=== PATIENT | male | born 1955 | race Two or more races ===

== ENCOUNTER 2017-08-16 17:55 | Inpatient (IN) | payer MEDICARE, OTHER ==
[~2017-08-16] VITALS: Ht 165.1 cm; Wt 99.8 kg
[~2017-08-16 17:55] MED LIST: AMLODIPINE BESYL5 MG ORAL; ASPIRIN EC81 MG ORAL; ATORVASTATIN CA40 MG ORAL; CALCIUM ACETAT667 M1 PO; CARVEDILOL25 MG ORAL; CEFTRIAXON1 GM/50 ML IV; COLACE100 MG ORAL; DILANTIN100 MG ORAL; FERROUS SULFAT325 M2 ORAL; FOLIC ACID1 M1 PO; HYDRALAZINE HCL25 M1 ORAL; LEVEMIR FL100 UNIT/1 SUBQ; LIPITOR40 MG ORAL; LISINOPRIL40 MG ORAL; NORCO 10/3251 EA ORAL; NOVOLOG100 UNITS1 SUBQ; PHENYTOIN SODI100 MG ORAL; RENA-VITE RX T1 EAC1 PO; UNOBMED
[2017-08-16] MEDS ORDERED: UNOBMED (18:07)
[2017-08-16] MEDS ORDERED: Piperacillin/Tazobactam 3.375 GM in NS 110 ML IVPB ONE (18:15)
[2017-08-16 19:04] LABS: APPEARANCE,URINE CLEAR; BILIRUBIN, URINE NEGATIVE (NEGATIVE); COLOR,URINE PALE YELLOW; GLUCOSE, URINE (UA) NEGATIVE (NEGATIVE); KETONES,URINE NEGATIVE (NEGATIVE); LEUKOCYTE ESTERASE ,URINE NEGATIVE (NEGATIVE); NITRITE,URINE NEGATIVE (NEGATIVE); PH,URINE 5 (4.5-8.0); PROTEIN,URINE NEGATIVE (NEGATIVE); UROBILINOGEN,URINE NORMAL MG/DL (0.0-1.0)
[2017-08-16 19:09] LABS: HEMATOCRIT 38.3 % (42.0-52.0); HEMOGLOBIN 12.9 G/DL (14.2-18.0); MEAN CORPUSCULAR VOLUME 99 FL (80-99); PLATELET COUNT 148 K/UL (150-450); RED BLOOD COUNT 3.89 M/UL (4.70-6.10); RED CELL DISTRIBUTION WIDTH 11.8 % (11.6-14.8); WHITE BLOOD COUNT 8.1 K/UL (4.8-10.8)
[2017-08-16 19:18] LABS: INR 1.3 (0.9-1.1)
[2017-08-16 19:30] VITALS: BP 152/76
[2017-08-16 19:32] LABS: ANION GAP 9 mmol/L (5-15); BLOOD UREA NITROGEN 37 mg/dL (7-18); CALCIUM 9.9 MG/DL (8.5-10.1); CARBON DIOXIDE 25 MMOL/L (21-32); CHLORIDE 102 MMOL/L (98-107); CREATININE 2.3 MG/DL (0.55-1.30); POTASSIUM 4.3 MMOL/L (3.5-5.1); SODIUM 136 MMOL/L (136-145)
[2017-08-16 19:43] LABS: ALANINE AMINOTRANSFERASE 56 U/L (12-78); ALBUMIN 4.2 G/DL (3.4-5.0); ALBUMIN/GLOBULIN RATIO 1.2 (1.0-2.7); ALKALINE PHOSPHATASE 132 U/L (46-116); ASPARTATE AMINO TRANSFERASE 36 U/L (15-37); BILIRUBIN,TOTAL 0.5 MG/DL (0.2-1.0); CREATINE KINASE 285 U/L (26-308)
--- NOTE | 2017-08-16 20:10 | Emergency Room Report ---
History of Present Illness General Chief Complaint: Skin Rash/Abscess Source: Patient, Medical Record Present Illness HPI The patient presents with several days of worsening of a diabetic ulcer on his right foot. There is also some redness there. He's had a previous diabetic ulcer on that foot in a different area. He denies any fevers or chills. He has neuropathy and doesn't feel pain. He also has circulatory problems there. There is no drainage. The patient is one year post kidney transplant.. Before that he was on dialysis. He denies any dyspnea, cough, transplant pain, nausea, vomiting, diarrhea, dysuria. He does have swelling of his lower extremities and is on a water pill. He is on Prograf and prednisone. The patient states his last tetanus shot was one year ago. Allergies: Coded Allergies: No Known Allergies (Unverified , 03/14/14) Patient History Past Medical History: see triage record Social History: Denies: smoking, alcohol use, drug use Social History Narrative born in [facility] Reviewed Nursing Documentation: PMH: Agreed; PSxH: Agreed Nursing Documentation-PMH Past Medical History: No History, Except For Hx Cardiac Problems: No Hx Hypertension: Yes Hx Pacemaker: No Hx Asthma: No Hx COPD: No Hx Diabetes: Yes Hx Cancer: No Hx Gastrointestinal Problems: No Hx Dialysis: Yes - last dialysis- 05/05/2013. right kidney transplant on 2016 Hx Neurological Problems: Yes Hx Cerebrovascular Accident: No Hx Seizures: Yes Review of Systems All Other Systems: negative except mentioned in HPI Physical Exam Vital Signs Date Time Temp Pulse Resp B/P (MAP) Pulse Ox O2 Delivery O2 Flow Rate FiO2 08/16/17 18:00 97.6 91 18 151/78 95 Room Air 97.5 Sp02 EP Interpretation: reviewed, normal General Appearance: well appearing, no apparent distress, GCS 15, non-toxic, other - [place] face Head: normocephalic, atraumatic Eyes: bilateral eye normal inspection, bilateral eye PERRL, bilateral eye EOMI ENT: moist mucus membranes Neck: full range of motion, supple Respiratory: chest non-tender, lungs clear, normal breath sounds Cardiovascular #1: edema - 2+ pitting edema bilateral somewhat worse on R Cardiovascular #2: 2+ radial (R), 2+ radial (L) Gastrointestinal: normal bowel sounds, non tender, soft, other - no tenderness , overweight Genitourinary: no CVA tenderness Musculoskeletal: back normal, swelling - and erythema R 2nd toe Neurologic: oriented x3, responsive, motor strength/tone normal, sensory intact Psychiatric: mood/affect normal Skin: other - erythema dorsum of R foot - tissue of 2nd toe almost devitalized. Plethoric Medical Decision Making Diagnostic Impression: Primary Impression: Diabetic foot infection Additional Impressions: S/P kidney transplant Diabetes Qualified Codes: E10.69 - Type 1 diabetes mellitus with other specified complication Renal insufficiency ER Course Patient presents with skin changes of his right foot with a history of prior diabetic ulcer in that area. Differential includes osteomyelitis, cellulitis, multi-organism infection amongst others. His exam is against this being a DVT. The skin is warm there and there appears to be good circulation. Vascular blockage is doubted at this time the patient is at increased risk because is on immunosuppressants for his recent renal transplant. His tetanus is up-to-date. The patient will be evaluated with EKG, chest x-ray for x-ray and labs including blood cultures. We'll be starting him on antibiotics as suspicion for cellulitis is high. EKG without injury. Chest x-ray with cardiomegaly and some reversible flow no infiltrates or effusion apparent. Foot x-ray shows DJD, vascular calcifications and possible bony changes consistent with osteomyelitis. Labs with normal white count. BUN and creatinine are elevated (though much less than when on dialysis). ESR is elevated (this on prednisone). NS stopped due to edema. Patient admitted medical floor Dr. Castillo. Laboratory Tests Test 08/16/17 18:40 White Blood Count 8.1 K/UL (4.8-10.8) Red Blood Count 3.89 M/UL (4.70-6.10) L Hemoglobin 12.9 G/DL (14.2-18.0) L Hematocrit 38.3 % (42.0-52.0) L Mean Corpuscular Volume 99 FL (80-99) Mean Corpuscular Hemoglobin 33.2 PG (27.0-31.0) H Mean Corpuscular Hemoglobin Concent 33.7 G/DL (32.0-36.0) Red Cell Distribution Width 11.8 % (11.6-14.8) Platelet Count 148 K/UL (150-450) L Mean Platelet Volume 8.1 FL (6.5-10.1) Neutrophils (%) (Auto) % (45.0-75.0) Lymphocytes (%) (Auto) % (20.0-45.0) Monocytes (%) (Auto) % (1.0-10.0) Eosinophils (%) (Auto) % (0.0-3.0) Basophils (%) (Auto) % (0.0-2.0) Differential Total Cells Counted 100 Neutrophils % (Manual) 90 % (45-75) H Lymphocytes % (Manual) 8 % (20-45) L Monocytes % (Manual) 1 % (1-10) Eosinophils % (Manual) 1 % (0-3) Basophils % (Manual) 0 % (0-2) Band Neutrophils 0 % (0-8) Platelet Estimate Decreased L Platelet Morphology Normal Anisocytosis Occasional Microcytosis Occasional Erythrocyte Sedimentation Rate Pending Prothrombin Time 13.8 SEC (9.30-11.50) H Prothrombin Time INR 1.3 (0.9-1.1) H PTT 26 SEC (23-33) Urine Color Pale yellow Urine Appearance Clear Urine pH 5 (4.5-8.0) Urine Specific [place] 1.005 (1.005-1.035) Urine Protein Negative (NEGATIVE) Urine Glucose (UA) Negative (NEGATIVE) Urine Ketones Negative (NEGATIVE) Urine Occult Blood Negative (NEGATIVE) Urine Nitrite Negative (NEGATIVE) Urine Bilirubin Negative (NEGATIVE) Urine Urobilinogen Normal MG/DL (0.0-1.0) Urine Leukocyte Esterase Negative (NEGATIVE) Sodium Level 136 MMOL/L (136-145) Potassium Level 4.3 MMOL/L (3.5-5.1) Chloride Level 102 MMOL/L (98-107) Carbon Dioxide Level 25 MMOL/L (21-32) Anion Gap 9 mmol/L (5-15) Blood Urea Nitrogen 37 mg/dL (7-18) H Creatinine 2.3 MG/DL (0.55-1.30) H Estimate Glomerular Filtration Rate 28.8 mL/min (>60) Glucose Level 121 MG/DL (74-106) H Lactic Acid Level 1.20 mmol/L (0.66-2.22) Calcium Level 9.9 MG/DL (8.5-10.1) Total Bilirubin 0.5 MG/DL (0.2-1.0) Aspartate Amino Transferase (AST) 36 U/L (15-37) Alanine Aminotransferase (ALT) 56 U/L (12-78) Alkaline Phosphatase 132 U/L (46-116) H Total Creatine Kinase 285 U/L (26-308) Troponin I 0.000 ng/mL (0.000-0.056) C-Reactive Protein, Quantitative 0.6 mg/dL (0.00-0.90) Pro-B-Type Natriuretic Peptide 342 pg/mL (0-125) H Total Protein 7.7 G/DL (6.4-8.2) Albumin 4.2 G/DL (3.4-5.0) Globulin 3.5 g/dL Albumin/Globulin Ratio 1.2 (1.0-2.7) EKG Diagnostic Results Rate: normal Rhythm: NSR ST Segments: no acute changes Rhythm Strip Diag. Results EP Interpretation: yes Rhythm: NSR, no PVC's, no ectopy Chest X-Ray Diagnostic Results Chest X-Ray Diagnostic Results : Chest X-Ray Ordered: Yes # of Views/Limited/Complete: 1 View Indication: Other EP Interpretation: Yes Interpretation: no effusion, no pneumothorax, other - Increased gant consistion Impression: Other Electronically Signed by: Electronically signed by Michael Cuba MD Other X-Ray Diagnostic Results Other X-Ray Diagnostic Results : X-Ray ordered: Right foot # of Views/Limited Vs Complete: 3 View Indication: Other EP Interpretation: Yes Interpretation: no dislocation, no fractures, other - Bony changes, vascular calcifications and soft tissue swelling Impression: Other Electronically Signed by: Electronically signed by Michael Cuba MD Last Vital Signs Date Time Temp Pulse Resp B/P (MAP) Pulse Ox O2 Delivery O2 Flow Rate FiO2 08/16/17 20:25 98.0 87 18 152/76 98 Room Air 98.0 Status: improved Disposition: ADMITTED INPATIENT Condition: Serious Referrals: NOT CHOSEN LESTER/,REFERRING (PCP) Michael Cuba M.D. August 16, 2017 20:10
[2017-08-16] MEDS ORDERED: AMLODIPINE BESY10 MG ORAL (20:18)
[2017-08-16] MEDS ORDERED: NORMODYNE100 MG ORAL (20:20)
[2017-08-16] MEDS ORDERED: LEVETIRACETAM500 MG ORAL (20:22)
[2017-08-16] MEDS ORDERED: PROGRAF1 MG ORAL (20:23)
[2017-08-16] MEDS ORDERED: VELTASSA25.2 GM PO (20:23)
[2017-08-16] MEDS ORDERED: TACROLIMUS0.5 MG PO (20:24)
[2017-08-16] MEDS ORDERED: PREDNISONE5 M3 PO (20:26)
[2017-08-16] MEDS ORDERED: VALGANCICLOVIR450 MG PO (20:28)
[2017-08-16 21:00] VITALS: BP 157/84
[2017-08-16] MEDS ORDERED: COLACE100 MG ORAL (22:27)
[2017-08-16] MEDS ORDERED: PROTONIX40 MG ORAL (22:27)
[2017-08-16] MEDS ORDERED: LANTUS SOL100 UNIT/1 SUBQ ×2 (22:27)
[2017-08-16] MEDS ORDERED: MULTI-VITAMIN1 EACH PO (22:27)
[2017-08-16] MEDS ORDERED: CELLCEPT250 MG ORAL (22:27)
[2017-08-16] MEDS ORDERED: FUROSEMIDE40 MG ORAL (22:27)
[2017-08-16] MEDS ORDERED: Docusate 100mg cap ORAL PRN (23:00)
[2017-08-16] MEDS: Mycophenolate 250mg cap ORAL SCH (23:48)
[2017-08-17] VITALS (7 sets, daily range): BP systolic 131–173; BP diastolic 60–86
[2017-08-17] MEDS: Piperacillin/Tazobactam 3.375 GM in NS 110 ML IVPB SCH ×3 (02:27→19:48)
[2017-08-17] MEDS: Vancomycin 1gm in D5W 275ml IVPB SCH (06:29)
[2017-08-17] MEDS ORDERED: NovoLOG Insulin Flexpen SUBQ SCH (06:30)
[2017-08-17] MEDS: NovoLOG Insulin Flexpen SUBQ SCH ×4 (06:30→21:39)
[2017-08-17 08:14] LABS: BASOPHILS % (AUTO) 1.1 % (0.0-2.0); EOSINOPHILS % (AUTO) 0.6 % (0.0-3.0); HEMATOCRIT 37.8 % (42.0-52.0); HEMOGLOBIN 12.7 G/DL (14.2-18.0); LYMPHOCYTES % (AUTO) 9.9 % (20.0-45.0); MEAN CORPUSCULAR VOLUME 99 FL (80-99); NEUTROPHILS % (AUTO) 84.3 % (45.0-75.0); PLATELET COUNT 145 K/UL (150-450); RED BLOOD COUNT 3.82 M/UL (4.70-6.10); RED CELL DISTRIBUTION WIDTH 11.7 % (11.6-14.8); WHITE BLOOD COUNT 6.8 K/UL (4.8-10.8)
--- NOTE | 2017-08-17 09:04 | Diagnostic Imaging Report ---
. Indication: Chest pain Technique: XRAY Chest 1v Comparison:None Findings: The heart is normal in size. The aorta is calcified. Bronchial wall thickening is present. There is elevation of the apparent right hemidiaphragm. The remainder the chest is unremarkable. Impression: Bronchial wall thickening. This may be acute or chronic. Comparison to any old films would be helpful. Elevated apparent right hemidiaphragm. Atherosclerotic change.
--- NOTE | 2017-08-17 09:06 | Diagnostic Imaging Report ---
. Indication: Foot pain Technique: Right foot, 3 views Comparison: None. Findings: There are vascular calcifications. There is deformity of the distal fifth metatarsal, likely related to previous fracture or previous surgery. No acute fracture. No bone destruction. Impression: Atherosclerotic change. Deformity of the fifth metatarsal, likely related to either previous fracture or previous surgery. No definite evidence of osteomyelitis.
[2017-08-17] MEDS: Aspirin EC 81mg tab ORAL SCH (09:19)
[2017-08-17] MEDS: Mycophenolate 250mg cap ORAL SCH ×2 (09:19→21:35)
[2017-08-17] MEDS: Furosemide 40mg tab ORAL SCH (09:20)
[2017-08-17] MEDS: Levemir Flexpen SUBQ SCH (09:36)
[2017-08-17 10:29] LABS: ANION GAP 13 mmol/L (5-15); BLOOD UREA NITROGEN 33 mg/dL (7-18); CALCIUM 9.4 MG/DL (8.5-10.1); CARBON DIOXIDE 22 MMOL/L (21-32); CHLORIDE 101 MMOL/L (98-107); CREATININE 2.2 MG/DL (0.55-1.30); POTASSIUM 4.6 MMOL/L (3.5-5.1); SODIUM 136 MMOL/L (136-145)
[2017-08-17] MEDS: Heparin 5000 units/ml inj SUBQ SCH ×2 (11:30→21:38)
--- NOTE | 2017-08-17 15:15 | Consultation ---
DATE OF CONSULTATION: REFERRING PHYSICIAN: Silverio Castillo M.D. REASON FOR CONSULTATION: 1. Acute kidney injury. 2. Chronic kidney disease. 3. Status post renal transplantation. HISTORY OF PRESENT ILLNESS: The patient is a 62-year-old male who was admitted overnight for worsening diabetic foot ulcer of his right toes. The patient states that he underwent a donor kidney transplant June 25 of last year the donor was 40 years old. The patient is speaking only. Says that he does not know his baseline creatinine, but he follows up with regular basis with his braze operator at [facility]. His creatinine currently is 2.3. The patient has been started on IV antibiotics for his diabetic foot ulcer. ALLERGIES: No known drug allergies. PAST MEDICAL HISTORY: 1. Status post renal transplantation. 2. Hypertension. 3. Diabetes mellitus. 4. Endstage renal disease, previously on hemodialysis. FAMILY HISTORY: Positive for diabetes and hypertension. PAST SURGICAL HISTORY: Status post renal transplantation 06/25/2016 at [facility] placed in the right lower quadrant. SOCIAL HISTORY: No current tobacco, alcohol, illicit drug use. Patient was born in [facility]. LABORATORY DATA: Labs dated 08/17/2017 white cell count 6.8, hemoglobin 12.7, platelet count 145. Sodium 136, creatinine 2.3, BUN 37. Troponin 0. Albumin 4.2. PHYSICAL EXAMINATION: VITAL SIGNS: Blood pressure 143/72, pulse 93, temperature 98.1, 98% oxygen saturation on room air. GENERAL: The patient is awake, alert, not otherwise in distress. HEENT: Extraocular muscles intact. No lymphadenopathy noted. Oropharyngeal mucosa clear, dry intact. CARDIOVASCULAR: S1, S2. No rubs, gallops. Regular rate. Pulmonary exam clear to auscultation bilaterally. No rales, rhonchi, or wheezes. ABDOMEN: Obese, nondistended and nontender. EXTREMITIES: No edema noted with right toe ulceration and drainage noted. ASSESSMENT AND PLAN: 1. Acute on possible chronic kidney disease, status post donor kidney transplantation from 40-year-old donor on 06/25/2016. Creatinine yesterday was 2.3. We will recheck a stat BMP. Continue hydration and discontinue the Lasix. Monitor vancomycin levels carefully. We will order a Prograf level at 8 p.m. tonight as patient is currently on prednisone, CellCept, and Prograf. Prograf is given 12 hours apart 9 a.m. and 9 p.m. We will check a trough level at 8 p.m. tonight to avoid any Prograf toxicity. At this time. Continue hydration and a right lower quadrant renal ultrasound of his renal transplant to rule out any obstructive nature as well. At this time, most likely acute kidney injury is secondary to component of volume depletion and underlining infection which causes inflammatory cytokine proximal tubal damage. We will call [facility] tomorrow to find out baseline creatinine. 2. Diabetic foot ulcer. Antibiotic management per primary care physician. Monitor vancomycin levels carefully to avoid vancomycin toxicity. 3. Status post renal transplant. donor 1 year ago. Continue Prograf, prednisone, and CellCept. Check Prograf level at 8 p.m. tonight. 4. Hypertension, adjust medications as deemed appropriate. Blood pressure currently stable. 5. Diabetes mellitus. Patient on insulin therapy. Continue to monitor carefully as patient is also on prednisone. Lan More MD DR: STEVEN JOB#: [id number] CC:
--- NOTE | 2017-08-17 17:00 | History and Physical Report ---
DATE OF ADMISSION: 08/16/2017 REASON FOR ADMISSION: Diabetic foot. HISTORY OF PRESENT ILLNESS: This is a 62-year-old male with history of worsening right foot erythema and edema. The patient has tenderness. The patient had prior history of diabetic ulcer, also evidence of blister on the toe. Denied any fevers or chills. The patient denies any recent trauma, but it has been ongoing for the past several days. The patient is a renal failure patient and has had a transplant approximately 1 year ago. The patient is on medications. The patient was seen and evaluated in the emergency room and now being admitted for the above. The patient's findings discussed and reviewed with the ER doctor. PAST MEDICAL HISTORY: Notable for history of renal failure, status post renal transplant, history of diabetes, history of hypertension, last dialysis back in 2013, and history of seizures. MEDICATIONS: Reviewed. ALLERGIES: Reviewed. SOCIAL HISTORY: Currently nonsmoker and nondrinker. The patient is ambulatory. PHYSICAL EXAMINATION: GENERAL: A well-developed male, otherwise comfortable. VITAL SIGNS: Blood pressure 146/82, pulse 81, respiratory rate 19, saturations 96%. HEENT: Negative. NECK: Supple. No adenopathy. LUNGS: With good air entry, symmetric. CARDIAC: Normal S1, S2. Regular rate and rhythm without murmurs, rubs, or gallops. ABDOMEN: Soft, nontender, nondistended. EXTREMITIES: No cyanosis or clubbing. The patient does have evidence of right foot erythema with third toe small blister. NEUROLOGICAL: Otherwise grossly nonfocal with mild neuropathic changes. LABORATORY DATA: Reviewed. BUN 37, creatinine 2.3. White cell count 8.1, hemoglobin 12.9, hematocrit 38, platelets of 148,000. Coagulation is within normal limits. IMPRESSION: Diabetic foot ulcer, evidence of chronic renal failure with history of renal transplant, diabetes, possibly diabetic neuropathy, noted immunosuppression. RECOMMENDATIONS: Supportive care. Resume medications. Aggressive antibiotics. Monitor blood sugars. Resume diabetic medications and insulin. Resume immunosuppressive agents with caution. Obtain renal evaluation. Monitor clinically and stabilize and proceed with ID evaluation and stabilization and discharge planning once the patient improves and findings seemed to be resolving. The patient will need to be discharged with home health and close outpatient followup with concern for worsening progression of disease. Silverio Castillo M.D. DR: CIARA JOB#: [id number] CC:
[2017-08-18 00:28] VITALS: BP 132/71
[2017-08-18] MEDS: Piperacillin/Tazobactam 3.375 GM in NS 110 ML IVPB SCH ×3 (03:22→18:37)
[2017-08-18 04:13] VITALS: BP 127/60
[2017-08-18] MEDS: NovoLOG Insulin Flexpen SUBQ SCH ×4 (05:49→21:08)
[2017-08-18 08:00] VITALS: BP 148/79
[2017-08-18 08:21] LABS: ANION GAP 9 mmol/L (5-15); BLOOD UREA NITROGEN 34 mg/dL (7-18); CALCIUM 9.3 MG/DL (8.5-10.1); CARBON DIOXIDE 27 MMOL/L (21-32); CHLORIDE 102 MMOL/L (98-107); CREATININE 2.3 MG/DL (0.55-1.30); POTASSIUM 4.5 MMOL/L (3.5-5.1); SODIUM 138 MMOL/L (136-145)
[2017-08-18] MEDS: Vancomycin 1gm in D5W 275ml IVPB SCH (08:30)
[2017-08-18] MEDS: Mycophenolate 250mg cap ORAL SCH ×2 (08:31→21:05)
[2017-08-18] MEDS: Aspirin EC 81mg tab ORAL SCH (08:31)
[2017-08-18] MEDS: Furosemide 40mg tab ORAL SCH (08:32)
[2017-08-18] MEDS: Heparin 5000 units/ml inj SUBQ SCH ×2 (08:35→21:08)
[2017-08-18] MEDS: Levemir Flexpen SUBQ SCH (08:37)
--- NOTE | 2017-08-18 08:52 | Nephrology Progress Note ---
Assessment/Plan Assessment/Plan 1. OMAR? on CKD 4- Cr at 2.3 - s/p DDKTx June 2016. Prograf, Cellcept and prednisone - DC lasix for now - prograf level pending - will call [facility] for baseline Cr - Renal Tx US ordered r/o obstructive etiology - avoid Nephrotoxins and monitor Vanc levels carefully 2. Diabetic Foot Ulcer- Abx 3. DM- on insulin 4. HTN- stable Subjective Date patient seen: August 18, 2017 Time patient seen: 08:48 ROS Limited/Unobtainable: No Allergies: Coded Allergies: No Known Allergies (Unverified , 03/14/14) All Systems: reviewed and negative except above Subjective Patient in no distress. Sitting up in chair at bedside Objective Last 24 Hour Vital Signs Date Time Temp Pulse Resp B/P (MAP) Pulse Ox O2 Delivery O2 Flow Rate FiO2 08/18/17 08:33 85 154/76 08/18/17 08:33 85 154/76 08/18/17 08:00 98.2 86 16 148/79 98 98.2 08/18/17 04:13 97.2 91 20 127/60 93 Room Air 97.2 08/18/17 00:28 97.9 65 20 132/71 93 Room Air 97.9 08/17/17 21:37 86 131/60 08/17/17 20:11 97.3 86 20 131/60 94 Room Air 97.3 08/17/17 16:00 Room Air 08/17/17 16:00 97.9 89 19 144/78 98 97.9 08/17/17 13:11 98 171/80 08/17/17 13:09 98 171/80 08/17/17 12:00 98.0 97 19 173/86 98 98.0 08/17/17 12:00 Room Air 08/17/17 09:21 89 163/77 08/17/17 09:04 Room Air Intake and Output 08/17/17 08/18/17 19:00 07:00 # Voids 3 3 # Bowel Movements 1 Laboratory Tests 08/17/17 20:00: Tacrolimus (Prograf) Level [Pending] 08/18/17 06:30: Sodium Level 138, Potassium Level 4.5, Chloride Level 102, Carbon Dioxide Level 27, Anion Gap 9, Blood Urea Nitrogen 34H, Creatinine 2.3H, Estimat Glomerular Filtration Rate 28.8, Glucose Level 171#H, Calcium Level 9.3 Height (Feet): 5 Height (Inches): 5.00 Weight (Pounds): 200 General Appearance: WD/WN, no apparent distress EENT: normal ENT inspection, TMs normal Neck: normal alignment, supple Cardiovascular: normal rate, regular rhythm Respiratory/Chest: lungs clear, normal breath sounds Abdomen: non tender, soft Edema: 1+ Pedal (R) Lan More M.D. August 18, 2017 08:52
[2017-08-18 12:00] VITALS: BP 137/64
--- NOTE | 2017-08-18 12:24 | General Progress Note ---
Assessment/Plan Assessment/Plan IMPRESSION: Diabetic foot ulcer, evidence of chronic renal failure with history of renal transplant, diabetes, possibly diabetic neuropathy, noted immunosuppression. PLAN MRI ID clearance monitor renal function monitor levels local retirement with HH once cleared for ongoing wound care with diabetes Subjective Allergies: Coded Allergies: No Known Allergies (Unverified , 03/14/14) Subjective still with erythema and ulcer foot MRI ordered Objective Last 24 Hour Vital Signs Date Time Temp Pulse Resp B/P (MAP) Pulse Ox O2 Delivery O2 Flow Rate FiO2 08/18/17 08:33 85 154/76 08/18/17 08:33 85 154/76 08/18/17 08:00 98.2 86 16 148/79 98 98.2 08/18/17 08:00 Room Air 08/18/17 04:13 97.2 91 20 127/60 93 Room Air 97.2 08/18/17 00:28 97.9 65 20 132/71 93 Room Air 97.9 08/17/17 21:37 86 131/60 08/17/17 20:11 97.3 86 20 131/60 94 Room Air 97.3 08/17/17 16:00 Room Air 08/17/17 16:00 97.9 89 19 144/78 98 97.9 08/17/17 13:11 98 171/80 08/17/17 13:09 98 171/80 Intake and Output 08/17/17 08/18/17 19:00 07:00 # Voids 3 3 # Bowel Movements 1 Laboratory Tests 08/17/17 20:00: Tacrolimus (Prograf) Level [Pending] 08/18/17 06:30: Sodium Level 138, Potassium Level 4.5, Chloride Level 102, Carbon Dioxide Level 27, Anion Gap 9, Blood Urea Nitrogen 34H, Creatinine 2.3H, Estimat Glomerular Filtration Rate 28.8, Glucose Level 171#H, Calcium Level 9.3 Height (Feet): 5 Height (Inches): 5.00 Weight (Pounds): 200 Objective HEENT: Negative. NECK: Supple. No adenopathy. LUNGS: With good air entry, symmetric. CARDIAC: Normal S1, S2. Regular rate and rhythm without murmurs, rubs, or gallops. ABDOMEN: Soft, nontender, nondistended. EXTREMITIES: No cyanosis or clubbing. The patient does have evidence of right foot erythema with third toe small blister. NEUROLOGICAL: Otherwise grossly nonfocal with mild neuropathic changes. reviewed Silverio Castillo MD August 18, 2017 12:24
--- NOTE | 2017-08-18 14:00 | Consultation ---
DATE OF CONSULTATION: 08/18/2017 INFECTIOUS DISEASES CONSULTATION CONSULTING PHYSICIAN: Alcira Gilbert M.D. REFERRING PHYSICIAN: Silverio Castillo M.D. REASON FOR CONSULTATION: Diabetic foot ulcer. HISTORY OF PRESENTING ILLNESS: This is a 62-year-old gentleman with history of diabetes, hypertension, renal failure, status post renal transplant, history of seizures, who comes in with a right third toe ulcer along with right foot erythema and edema. An Infectious Diseases consultation has been obtained for right foot cellulitis and ulcer. PAST MEDICAL HISTORY: 1. History of diabetes. 2. Hypertension. 3. Renal failure, status post renal transplant. 4. History of seizures. SOCIAL HISTORY: He does not smoke, drink, or use drugs. FAMILY HISTORY: Noncontributory. REVIEW OF SYSTEMS: RESPIRATORY: No fever, chills, cough, shortness of breath, or chest pain. CARDIAC: No chest pain. No palpitations. No dizziness. No syncope. GASTROINTESTINAL: No nausea. No vomiting. No abdominal pain or diarrhea. MUSCULOSKELETAL: He denies any pain. MEDICATIONS: As an inpatient, he is on labetalol, subcutaneous heparin, amlodipine, aspirin, folic acid, multivitamin, Protonix, Valcyte, ferrous sulfate, prednisone, insulin, vancomycin, Zosyn, tacrolimus, mycophenolate, Keppra, and docusate. ALLERGIES: No known drug allergies. PHYSICAL EXAMINATION: VITAL SIGNS: Temperature of 98.2, T-max of 98.2, pulse of 85, respiratory rate of 16, blood pressure 154/76, and O2 saturation of 98%. HEENT: Pupils equally reactive to light and accommodation. Mouth appears clean without thrush. NECK: Supple. No adenopathy. No JVD. CARDIOVASCULAR: Regular rate and rhythm. No murmurs. LUNGS: Clear to auscultation bilaterally. No crackles. No wheezes. ABDOMEN: Soft and nontender. No organomegaly. EXTREMITIES: No cyanosis. No clubbing. Edema noted bilaterally with right leg erythema as well as right third toe ulcer. LABORATORY AND DIAGNOSTIC DATA: White count 6.8, hemoglobin 12.7, hematocrit 37.8, MCV 99, platelet count of 145, and neutrophils of 84%. Sodium 138, potassium 4.5, chloride 102, bicarb 27, BUN 34, creatinine 2.3, glucose 171, and calcium 9.3. Total protein 7.7. Albumin 4.2. AST 36, ALT 56, and alkaline phosphatase 132. Total bilirubin 0.5. Blood cultures are negative on 08/16/2017. Chest x-ray showing bronchial wall thickening. Foot x-ray showing deformity of the distal fifth metatarsal. ASSESSMENT: This is a 62-year-old gentleman with history of diabetes, hypertension, renal failure, status post transplant, who comes in with right leg and foot cellulitis along with right third toe ulcer, would be concerned regarding underlying osteomyelitis. 1. Diabetes. 2. Hypertension. 3. Renal failure. PLAN: 1. Discontinue vancomycin. 2. Continue Zosyn. 3. We will start the patient on linezolid. 4. We will order an MRI of the right foot. 5. We will follow up cultures. I would like to thank, Dr. Castillo, for this consultation. Alcira Gilbert M.D. DR: GEORGE JOB#: [id number] CC: Silverio Castillo M.D.; Fax#: [phone]
[2017-08-18] MEDS ORDERED: PATIROMER ORAL SCH (15:00)
--- NOTE | 2017-08-18 15:14 | Diagnostic Imaging Report ---
Indication: Ulceration cellulitis third toe Technique: Right forefoot imaging utilizing multiplanar T1 fast spin-echo, proton and T2 fast spin-echo with fat saturation, and STIR. Comparison: None Findings: Bone marrow signal normal. There is cellulitis with subcutaneous edema particularly in the dorsum of the foot. Ulcer per history involving the third toe is not well-demonstrated by MRI. No evidence of abscess. IMPRESSION: Cellulitis. No evidence of acute osteomyelitis
[2017-08-18 16:00] VITALS: BP 141/79
[2017-08-18 21:23] VITALS: BP 140/53
[2017-08-19] MEDS: Piperacillin/Tazobactam 3.375 GM in NS 110 ML IVPB SCH ×2 (02:48→09:30)
[2017-08-19 04:01] VITALS: BP 138/50
[2017-08-19] MEDS: NovoLOG Insulin Flexpen SUBQ SCH (06:42)
[2017-08-19 08:00] VITALS: BP 143/61
[2017-08-19] MEDS: Mycophenolate 250mg cap ORAL SCH (09:30)
--- NOTE | 2017-08-19 09:30 | General Progress Note ---
Assessment/Plan Assessment/Plan IMPRESSION: Diabetic foot ulcer/cellulitis, evidence of chronic renal failure with history of renal transplant, diabetes, possibly diabetic neuropathy, noted immunosuppression. PLAN MRI noted ID clearance pending monitor renal function for change monitor levels local senior care with HH once cleared for ongoing wound care with diabetes hope today impression, plan, and exam edited and reviewed in detail care discussed with RN Subjective Allergies: Coded Allergies: No Known Allergies (Unverified , 03/14/14) Subjective some improvement MRI discussed Objective Last 24 Hour Vital Signs Date Time Temp Pulse Resp B/P (MAP) Pulse Ox O2 Delivery O2 Flow Rate FiO2 08/19/17 08:00 97.5 87 20 143/61 96 97.5 08/19/17 04:01 96.3 91 18 138/50 100 Room Air 96.3 08/18/17 21:23 98.1 91 18 140/53 100 Room Air 98.1 08/18/17 21:06 82 141/79 08/18/17 16:00 98.0 82 19 141/79 98 98.0 08/18/17 12:00 Room Air 08/18/17 12:00 98.1 86 20 137/64 97 98.1 Intake and Output 08/18/17 08/19/17 19:00 07:00 Intake Total 750 ml Output Total 600 ml 675 ml Balance -600 ml 75 ml Other 750 ml Output Urine Total 600 ml 675 ml # Voids 3 # Bowel Movements 1 Height (Feet): 5 Height (Inches): 5.00 Weight (Pounds): 220 Objective HEENT: Negative. NECK: Supple. No adenopathy. LUNGS: With good air entry, symmetric. CARDIAC: Normal S1, S2. Regular rate and rhythm without murmurs, rubs, or gallops. ABDOMEN: Soft, nontender, nondistended. EXTREMITIES: No cyanosis or clubbing. The patient does have evidence of right foot erythema with third toe small blister- slightly better. NEUROLOGICAL: grossly nonfocal with mild neuropathic changes. reviewed Silverio Castillo MD August 19, 2017 09:30
[2017-08-19 09:32] VITALS: BP 143/61
[2017-08-19] MEDS: Aspirin EC 81mg tab ORAL SCH (09:32)
[2017-08-19] MEDS: Levemir Flexpen SUBQ SCH (09:33)
[2017-08-19] MEDS: Heparin 5000 units/ml inj SUBQ SCH (09:34)
--- NOTE | 2017-08-19 10:00 | Nephrology Progress Note ---
Assessment/Plan Assessment/Plan 1. CKD 4- BL Cr 1.8-2.2. Spoke with [facility]. HJis last Prograf level was 6.2. OK for DC from renal point. has appt next week at [facility] - s/p DDKTx June 2016. Prograf, Cellcept and prednisone - prograf level pending - Renal Tx US ordered r/o obstructive etiology - avoid Nephrotoxins. On Zosyn and Zyvoxx 2. Diabetic Foot Ulcer- Abx 3. DM- on insulin 4. HTN- stable Subjective Date patient seen: August 19, 2017 Time patient seen: 09:58 ROS Limited/Unobtainable: No Allergies: Coded Allergies: No Known Allergies (Unverified , 03/14/14) All Systems: reviewed and negative except above Subjective Patient in no distress. Sitting up in chair at bedside with . No complaints Objective Last 24 Hour Vital Signs Date Time Temp Pulse Resp B/P (MAP) Pulse Ox O2 Delivery O2 Flow Rate FiO2 08/19/17 09:32 87 143/61 08/19/17 09:31 87 143/61 08/19/17 08:00 97.5 87 20 143/61 96 97.5 08/19/17 04:01 96.3 91 18 138/50 100 Room Air 96.3 08/18/17 21:23 98.1 91 18 140/53 100 Room Air 98.1 08/18/17 21:06 82 141/79 08/18/17 16:00 98.0 82 19 141/79 98 98.0 08/18/17 12:00 Room Air 08/18/17 12:00 98.1 86 20 137/64 97 98.1 Intake and Output 08/18/17 08/19/17 19:00 07:00 Intake Total 750 ml Output Total 600 ml 675 ml Balance -600 ml 75 ml Other 750 ml Output Urine Total 600 ml 675 ml # Voids 3 # Bowel Movements 1 Height (Feet): 5 Height (Inches): 5.00 Weight (Pounds): 220 General Appearance: alert, lethargic EENT: normal ENT inspection, TMs normal Neck: normal alignment, supple Cardiovascular: normal rate, regular rhythm Respiratory/Chest: normal breath sounds, no respiratory distress Abdomen: non tender, soft Edema: 1+ Pedal (R) Lan More M.D. August 19, 2017 10:00
[2017-08-19] MEDS ORDERED: DOXYCYCLINE HY100 M2 PO ×2 (10:21→10:22)
[2017-08-19 11:10] LABS: ANION GAP 8 mmol/L (5-15); BLOOD UREA NITROGEN 34 mg/dL (7-18); CALCIUM 9.3 MG/DL (8.5-10.1); CARBON DIOXIDE 27 MMOL/L (21-32); CHLORIDE 98 MMOL/L (98-107); CREATININE 2.3 MG/DL (0.55-1.30); POTASSIUM 4.6 MMOL/L (3.5-5.1); SODIUM 133 MMOL/L (136-145)
[2017-08-19] MEDS ORDERED: D5W 275ml ONE (11:29)
[2017-08-19] MEDS ORDERED: Tubing IV Secondary IV ONE (11:29)
--- NOTE | 2017-08-19 13:53 | Diagnostic Imaging Report ---
Indication:Elevated Bun and Creatinine. Technique: Grayscale and duplex Doppler imaging of the kidneys performed. Comparison: None Findings: The [place] kidneys are echogenic and small consistent with end-stage renal disease. A renal transplant noted in the right iliac fossa. Morphologically the kidney appears normal without hydronephrosis. Urinary bladder is unremarkable in appearance. Doppler interrogation of the renal transplant shows borderline resistive indices between 0.58 and 0.78. Correlate clinically. IVC and bladder appear unremarkable. IMPRESSION: Borderline resistive indices may be sign of early rejection within the right renal transplant. Correlate clinically.
--- NOTE | 2017-08-20 17:11 | Discharge Summary ---
Discharge Summary Discharge Summary _ DATE OF ADMISSION: 08/16/2017 DATE OF DISCHARGE: 08/02/2017 CONSULTANTS: Dr. Alcira More BRIEF HOSPITAL COURSE: Patient is a 62-year-old male, with history of worsening right foot erythema and edema with tenderness. The patient has a prior history of diabetes ulcer, with evidence of blister on the toes. He denied fever or chills. He denied any recent trauma but symptoms had been ongoing for the past several days. The patient has renal failure and had transplant approximately one year ago. He was evaluated at ED. Workup showed normal white count. Chest x-ray with cardiomegaly and no infiltrates or effusion apparent. Foot x-ray showed DJD, vascular calcification and possible bony changes consistent with osteomyelitis. BUN was 37, creatinine was 2.3. He was admitted for evaluation of diabetic foot ulcer, evidence of renal failure with history of renal transplant, diabetes with possible diabetic neuropathy and noted immunosuppression. He was seen by order to delivery supervisor for acute on chronic renal failure. He was given IV hydration, Lasix was discontinued. He was given Prograf, prednisone, CellCept. Acute kidney injury secondary to volume depletion and underlying infection. Renal ultrasound showed borderline resistive indices which may be early rejection within right renal transplant. Prograf level pending. He was initially given vancomycin, renal function were monitored. Per ID, vancomycin was discontinued and was given Zosyn and Zyvox. Foot MRI showed cellulitis with no evidence of acute osteomyelitis. Wound culture with MSSA. He was eventually discharged home with home health. FINAL DIAGNOSES: Diabetic foot ulcer/cellulitis Acute on chronic renal failure/CK D4 with history of renal transplant Diabetes mellitus with possible diabetic neuropathy Immunosuppression Hypertension DISPOSITION: Patient was discharged home with home health. DISCHARGE MEDICATIONS: Refer to Discharge Medication List. DISCHARGE INSTRUCTIONS: Follow-up with PMD in a week. I have been assigned to dictate discharge summary on this account, and I was not involved in the patient's management. Taniya Camp NP August 20, 2017 17:11
== END 2017-08-19 11:30 | disposition home health service (06) | DRG 638 ==
LOC: EMR 18:46 → EDBEDREQ 19:31 → 4W 19:43
DX: E11.621 Type 2 diabetes mellitus with foot ulcer (principal); L03.115 Cellulitis of right lower limb; Z94.0 Kidney transplant status; N18.4 Chronic kidney disease, stage 4 (severe); E11.628 Type 2 diabetes mellitus with other skin complications; N17.9 Acute kidney failure, unspecified; E11.22 Type 2 diabetes mellitus with diabetic chronic kidney disease; E11.40 Type 2 diabetes mellitus with diabetic neuropathy, unspecified; I12.9 Hypertensive chronic kidney disease with stage 1 through stage 4 chronic kidney disease, or unspecified chronic kidney disease; Z79.4 Long term (current) use of insulin
CPT/HCPCS: 36415; 71045; 76770; 80048; 80053; 80197; 80299; 81003; 82550; 82962; 83036; 83605; 83880; 84484; 85007; 85025; 85610; 85651; 85730; 86140; 86850; 86900; 86901; 87040; 87070; 87181; 87205; 93005; 99284; J1815; S5561